=== PATIENT | female | born 1955 | race Caucasian/White ===

== ENCOUNTER 2020-02-27 07:44 | Day surgery (SDC) | payer BC ==
[2020-02-25 09:01] VITALS: BMI 22.7
[2020-02-27 09:01] VITALS: TEMP 97.5
[2020-02-27 09:31] VITALS: PULSE 68
[2020-02-27 09:48] VITALS: BP 138/70
--- NOTE | 2020-02-28 17:20 | PATH ---
Surgical Pathology Report Patient Name: ROSALVA COTA [facility]. Rec. #: [id number] /Age/Gender: 1955 (Age: 64) / F Account: [id number] Location: U-ENDOSCOPY Taken: 02/27/2020 Received: 02/27/2020 Reported: 02/28/2020 Physicians: Romana Mills M.D. Specimen(s) Received A: SECOND PORTION AND BULB OF DUODENAL B: GASTRIC ANTRUM C: ILEOCOLONIC ANASTOMOSIS Clinical History Abdominal pain Postoperative diagnosis: Diverticulosis, gastritis, patent anastomosis Final Diagnosis A. SECOND PORTION AND BULB OF DUODENUM, BIOPSY: DUODENAL MUCOSA WITH NO SIGNIFICANT PATHOLOGIC CHANGE. NO HISTOLOGIC EVIDENCE OF INTRAEPITHELIAL LYMPHOCYTOSIS. B. GASTRIC ANTRUM, BIOPSY: GASTRIC MUCOSA WITH CHRONIC GASTRITIS. IMMUNOSTAIN FOR H. PYLORI IS NEGATIVE. NEGATIVE FOR INTESTINAL METAPLASIA. C. ILEOCOLONIC ANASTOMOSIS, BIOPSY: COLONIC MUCOSA WITH EROSION, MARKED ACUTE AND CHRONIC INFLAMMATION. SEPARATE INFLAMMATORY AND FIBRINOUS EXUDATE. Electronically Signed Judit Reeder M.D. Gross Description A. Received in formalin, labeled "second portion and bulb of duodenum" are 5 mccann, irregular portions of soft tissue ranging from 0.2-0.4 cm. in greatest dimension. The specimens are submitted in toto in one cassette. B. Received in formalin, labeled "gastric antrum biopsy" are 2 mccann, irregular portions of soft tissue measuring 0.4 and 0.6 cm. in greatest dimension. The specimens are submitted in toto in one cassette. C. Received in formalin, labeled "ileocolonic anastomosis biopsy" are 3 mccann, irregular portions of soft tissue ranging from 0.1-0.4 cm. in greatest dimension. The specimens are submitted in toto in one cassette. DL/02/27/2020 saudi/02/27/2020
== END 2020-02-27 09:50 | disposition home or self-care (01) ==
LOC: JASU-ENDO 07:44
PROVIDERS: ATTEND Internal Medicine Gastroenterology
PROC: 0DB98ZX Excision of Duodenum, Via Natural or Artificial Opening Endoscopic, Diagnostic (ICD-10-PCS; 2020-02-27)
PROC: 0DB68ZX Excision of Stomach, Via Natural or Artificial Opening Endoscopic, Diagnostic (ICD-10-PCS; 2020-02-27)
PROC: 0DBF8ZX Excision of Right Large Intestine, Via Natural or Artificial Opening Endoscopic, Diagnostic (ICD-10-PCS; principal; 2020-02-27 08:00)
DX: Z12.11 Encounter for screening for malignant neoplasm of colon (principal); K57.30 Diverticulosis of large intestine without perforation or abscess without bleeding; K63.3 Ulcer of intestine; Z98.0 Intestinal bypass and anastomosis status; K91.89 Other postprocedural complications and disorders of digestive system; K29.50 Unspecified chronic gastritis without bleeding; I10 Essential (primary) hypertension; E78.5 Hyperlipidemia, unspecified; I34.1 Nonrheumatic mitral (valve) prolapse; K21.9 Gastro-esophageal reflux disease without esophagitis
CPT/HCPCS: 88305-TC; 88342-TC